=== PATIENT | male | born 1975 | race Caucasian/White ===

== ENCOUNTER 2022-06-22 20:46 | Observation (INO) ==
[2022-06-22 22:19] LABS: Basophils # (auto) 0.02 K/uL (0-0.2); Basophils % (auto) 0.2 %; Eosinophils # (auto) 0.03 K/uL (0-0.50); Eosinophils % (auto) 0.3 %; Hematocrit (blood only) 41.5 % (40.1-51.0); Hemoglobin 13.9 g/dl (14.0-18.0); Immature Granulocytes # (auto) 0.04 K/uL (0.00-0.02); Immature Granulocytes % (auto) 0.4 %; Lymphocytes # (auto) 1.16 K/uL (1.2-3.4); Lymphocytes % (auto) 11.7 %; Mean Corpuscular Hemoglobin 29.6 pg (25.0-34.0); Mean Corpuscular Hgb Conc 33.5 g/dL (32.0-36.0); Mean Corpuscular Volume 88.5 fL (80.0-100.0); Mean Platelet Volume 10.2 fL (9.4-12.4); Monocytes # (auto) 1.22 K/uL (0.24-0.82); Monocytes % (auto) 12.3 %; Neutrophils # (auto) 7.45 K/uL (1.4-6.5); Neutrophils % (auto) 75.1 %; Platelet Count 166 K/uL (130-400); RDW Coefficient of Variation 12.4 % (11.5-14.5); RDW Standard Deviation 40.4 fL (36.4-46.3); Red Blood Count 4.69 M/uL (4.63-6.08); White Blood Count 9.92 K/ul (4.8-10.8)
[2022-06-22 22:29] LABS: Partial Thromboplastin Time 27.8 Seconds (21.0-31.0); Prothrombin Time 10.3 Seconds (9.0-12.0)
[2022-06-22 22:51] LABS: Albumin Globulin Ratio 1.7 (0.9-2); Albumin Level 4.5 gm/dl (3.4-5.0); BUN Creatinine Ratio 16.7 (10-20); Calcium 9.4 mg/dl (8.5-10.1); Creatinine Clr Calc Pharmacy 88.9 ml/min; Est GFR (African American) 108.7 ml/min; Est GFR (Non-African American) 93.8 ml/min; Globulin 2.6 gm/dl (2.5-4.0); Potassium 4.4 mmol/L (3.5-5.1); Total Protein 7.1 gm/dl (6.0-8.3)
[2022-06-22] MEDS ORDERED: MoRPHine SULFATE 4 MG/ML 1 ML CARP\\VIAL IV STA (23:20)
[2022-06-22] MEDS ORDERED: ONDANSETRON INJ 2 MG/ML 2 ML VIAL IV STA (23:20)
--- NOTE | 2022-06-22 23:29 | Emergency Department Note ---
History of Present Illness General Chief complaint: Rib Injury/Pain Stated complaint: RIB PAIN, SHOULDER PAIN Time Seen by Provider: 06/22/22 23:15 History of Present Illness Maximum Pain Intensity: 9 This 47-year-old presents to the ER complaining of right upper quadrant pain today Location: Right upper quadrant chest Quality: Painful Severity: Moderate Duration: Today Timing: Today Context: Patient was concerned and came in Modifying factors: better with rest; worse with palpation patient is concerned it might be his gallbladder. The pain radiates to his shoulder. Patient denies fevers, vomiting, diarrhea, flulike illness. No trauma to the area. Home Medications Medication Instructions Recorded Confirmed Type esomeprazole magnesium 20 mg 20 mg PO QAM 06/02/22 06/23/22 History capsule,delayed release Allergies Allergy/AdvReac Type Severity Reaction Status Date / Time No Known Allergies Allergy Unknown Verified 06/23/22 01:51 Past Med/Surg History Medical History BPV (benign positional vertigo) GERD (gastroesophageal reflux disease) Left inguinal hernia Surgical History Hx of inguinal hernia surgery 1975 Previous back surgery 2006 S/P left inguinal hernia repair (06/14/22) Open left inguinal hernia repair. Dr. Silva Family History Father Hypertension Denies family history of Ovarian cancer Prostate cancer Diabetes Myocardial infarction Breast cancer Colorectal cancer Social History Smoking Status: Never smoker Tobacco Type: Smokeless Tobacco (Dip or Chew) Second Hand Exposure: Yes (growing up); Hx Alcohol Use: Yes Alcohol type: beer Alcohol Intake Frequency: 2-3 x/Week Hx Substance Use: No Preferred Language: Danish Communication Ability: Effective Wheel Roller Required: No Beliefs That Will Affect Care: None marital status: Current Living Situation: Spouse and Family current occupational status: employed 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 Feels Safe at Home: Yes caffeine: Yes (coffee) Dental Care, Regularly: Yes Physical Activity Frequency: 3-4 Times per Week Physical Activity Frequency Comment: working Seatbelt Use: always Sunscreen Use: Yes Assistive Devices: Glasses Review of Systems A total of 10 systems reviewed and were otherwise negative Physical Exam Vital Signs Vital Signs - 24 hr 06/22/22 20:55 06/23/22 02:10 Temperature 37.0 C Temperature Source Temporal Artery Scan Pulse Rate 82 Pulse Rate [Finger] 71 Respiratory Rate 18 18 Respiratory Depth Normal Normal Blood Pressure 128/83 Blood Pressure [Right Arm] 127/75 Blood Pressure Mean 98 Blood Pressure Mean [Right Arm] 92 Pulse Oximetry 99 99 Oxygen Delivery Method Room Air Room Air Sepsis Recent Fever Within 48 Hours No Sepsis New/Unexplained Change in Mental Status N/A Sepsis Action Taken by Nursing No Action Required VITALS: Vitals are noted on the nurse's note and reviewed by myself. Vital signs stable. GENERAL: Pleasant gentleman ambulating without difficulty, in no acute distress, nondiaphoretic, well-developed well-nourished. SKIN: The skin was without rashes, erythema, edema, or bruising. There is no tenting of the skin. Capillary reflex less than 2 seconds. HEAD: Normocephalic atraumatic. EARS: External auditory canals clear, EYES: Pupils equal round and reactive to light and accommodation. Conjunctivae without injection, sclerae without icterus. Extraocular movements intact. NOSE: Patent, turbinates without inflammation or discharge MOUTH: Mucous membranes moist. Pharynx without erythema or exudate. Uvula midline. Airway patent. Tongue does not deviate. NECK: Supple without nuchal rigidity. No lymphadenopathy. No thyromegaly. Cervical spine is nontender. No JVD. HEART: Regular rate and rhythm LUNGS: Clear to auscultation bilaterally without wheezes, rales or rhonchi. No retractions or accessory muscle use. ABDOMEN: Positive bowel sounds x 4. Normal tympanic percussion. Soft, tender to palpation right upper quadrant, without masses or organomegaly. No guardi ng or rebound tenderness. No CVA tenderness MUSCULOSKELETAL: No muscle atrophy, erythema, or edema noted. NEURO: Patient was alert and oriented to person place and time. Normal sensation to light and sharp touch. No focal neurological deficits. Course Administered Medications Discontinued Medications Diazepam (Diazepam 5 Mg/Ml Inj 10ml Vial) 5 mg IV NOW STA Stop: 06/23/22 03:14 Last Admin: 06/23/22 03:36 Dose: 5 mg Documented By: JOSE RAMON Acetaminophen (Ofirmev) 1,000 mg in 100 mls @ 400 mls/hr IV NOW STA Stop: 06/23/22 00:09 Last Infusion: 06/23/22 00:24 Dose: 0 mls/hr Documented By: Admin: 06/23/22 00:03 Dose: 400 mls/hr Documented By: BECKA Ioversol (Optiray 320 500ml) 107 ml IV ONCE ONE Stop: 06/23/22 01:52 Last Admin: 06/23/22 01:51 Dose: 107 ml Documented By: MASHA Ketorolac Tromethamine (Ketorolac Tromethamine 15 Mg/Ml Vial) 10 mg IV NOW STA Stop: 06/23/22 02:40 Last Admin: 06/23/22 02:44 Dose: 10 mg Documented By: JOSE RAMON Morphine Sulfate (Morphine Sulfate 4 Mg/Ml 1 Ml Carp\Vial) 4 mg IV NOW STA Stop: 06/22/22 23:21 Last Admin: 06/23/22 02:11 Dose: 4 mg Documented By: DONITA Morphine Sulfate (Morphine Sulfate 4 Mg/Ml 1 Ml Carp\Vial) Confirm Administered Dose 4 mg .ROUTE .STK-MED ONE Stop: 06/23/22 02:09 Last Admin: 06/23/22 02:11 Dose: Not Given Documented By: DONITA Morphine Sulfate (Morphine Sulfate 4 Mg/Ml 1 Ml Carp\Vial) 4 mg IV NOW STA Stop: 06/23/22 02:35 Last Admin: 06/23/22 02:38 Dose: 4 mg Documented By: JOSE RAMON Ondansetron HCl (Ondansetron Inj 2 Mg/Ml 2 Ml Vial) 4 mg IV NOW STA Stop: 06/22/22 23:21 Last Admin: 06/23/22 02:11 Dose: 4 mg Documented By: DONITA Ondansetron HCl (Ondansetron Inj 2 Mg/Ml 2 Ml Vial) Confirm Administered Dose 4 mg .ROUTE .STK-MED ONE Stop: 06/23/22 02:09 Last Admin: 06/23/22 02:11 Dose: Not Given Documented By: DONITA Medical Decision Making Medical Records Attestation: I reviewed the patient's medical records. Home Medications Current Medication List: was personally reviewed by me Laboratory Data Attestation: I reviewed the patient's lab results. Result diagrams: 06/22/22 22:07 06/22/22 22:07 Lab Results 06/22/22 06/22/22 06/22/22 Range/Units 22:07 22:07 22:07 WBC 9.92 (4.8-10.8) K/ul RBC 4.69 (4.63-6.08) M/uL Hgb 13.9 L (14.0-18.0) g/dl Hct 41.5 (40.1-51.0) % MCV 88.5 (80.0-100.0) fL MCH 29.6 (25.0-34.0) pg MCHC 33.5 (32.0-36.0) g/dL RDW Std Deviation 40.4 (36.4-46.3) fL RDW Coeff of Lm 12.4 (11.5-14.5) % Plt Count 166 (130-400) K/uL MPV 10.2 (9.4-12.4) fL Immature Gran % (Auto) 0.4 % Neut % (Auto) 75.1 % Lymph % (Auto) 11.7 % [place] % (Auto) 12.3 % Eos % (Auto) 0.3 % Baso % (Auto) 0.2 % Neut # (Auto) 7.45 H (1.4-6.5) K/uL Lymph # (Auto) 1.16 L (1.2-3.4) K/uL [place] # (Auto) 1.22 H (0.24-0.82) K/uL Eos # (Auto) 0.03 (0-0.50) K/uL Baso # (Auto) 0.02 (0-0.2) K/uL Immature Gran # (Auto) 0.04 H (0.00-0.02) K/uL PT 10.3 (9.0-12.0) Seconds INR 1.0 (0.9-1.1) APTT 27.8 (21.0-31.0) Seconds PTT Ratio 1.0 Sodium 140 (136-145) mmol/L Potassium 4.4 (3.5-5.1) mmol/L Chloride 102 (98-107) mmol/L Carbon Dioxide 30 (21-32) mmol/L Anion Gap 8 (3-11) BUN 16 (6-23) mg/dl Creatinine 0.96 (0.6-1.4) mg/dl Est Cr Clr Drug Dosing 88.9 ml/min Est GFR ( Amer) 108.7 ml/min Est GFR (Non-Af Amer) 93.8 ml/min BUN/Creatinine Ratio 16.7 (10-20) Glucose 112 H (70-99(Fasting)) mg/dl Calcium 9.4 (8.5-10.1) mg/dl Total Bilirubin 1.0 (0.2-1.0) mg/dl AST 140 H (13-39) U/L ALT 193 H (7-52) U/L Alkaline Phosphatase 134 H (34-104) U/L Troponin I High Sens Cancelled Total Protein 7.1 (6.0-8.3) gm/dl Albumin 4.5 (3.4-5.0) gm/dl Globulin 2.6 (2.5-4.0) gm/dl Albumin/Globulin Ratio 1.7 (0.9-2) Lipase 19 (11-82) U/L SARS-CoV-2, RNA, NAAT (NEGATIVE) 06/23/22 06/23/22 Range/Units 01:33 02:50 WBC (4.8-10.8) K/ul RBC (4.63-6.08) M/uL Hgb (14.0-18.0) g/dl Hct (40.1-51.0) % MCV (80.0-100.0) fL MCH (25.0-34.0) pg MCHC (32.0-36.0) g/dL RDW Std Deviation (36.4-46.3) fL RDW Coeff of Lm (11.5-14.5) % Plt Count (130-400) K/uL MPV (9.4-12.4) fL Immature Gran % (Auto) % Neut % (Auto) % Lymph % (Auto) % [place] % (Auto) % Eos % (Auto) % Baso % (Auto) % Neut # (Auto) (1.4-6.5) K/uL Lymph # (Auto) (1.2-3.4) K/uL [place] # (Auto) (0.24-0.82) K/uL Eos # (Auto) (0-0.50) K/uL Baso # (Auto) (0-0.2) K/uL Immature Gran # (Auto) (0.00-0.02) K/uL PT (9.0-12.0) Seconds INR (0.9-1.1) APTT (21.0-31.0) Seconds PTT Ratio Sodium (136-145) mmol/L Potassium (3.5-5.1) mmol/L Chloride (98-107) mmol/L Carbon Dioxide (21-32) mmol/L Anion Gap (3-11) BUN (6-23) mg/dl Creatinine (0.6-1.4) mg/dl Est Cr Clr Drug Dosing ml/min Est GFR ( Amer) ml/min Est GFR (Non-Af Amer) ml/min BUN/Creatinine Ratio (10-20) Glucose (70-99(Fasting)) mg/dl Calcium (8.5-10.1) mg/dl Total Bilirubin (0.2-1.0) mg/dl AST (13-39) U/L ALT (7-52) U/L Alkaline Phosphatase (34-104) U/L Troponin I High Sens 2.7 Total Protein (6.0-8.3) gm/dl Albumin (3.4-5.0) gm/dl Globulin (2.5-4.0) gm/dl Albumin/Globulin Ratio (0.9-2) Lipase (11-82) U/L SARS-CoV-2, RNA, NAAT NEGATIVE (NEGATIVE) Imaging Data Attestation: I personally reviewed and interpreted this imaging study as follows: MDM Narrative Prior records/ancillary studies reviewed. Triage Nursing notes reviewed. Additional history obtained from nursing. The patient's history was concerning for abdominal pain. Differential diagnosis: Etiologies such as appendicitis, diverticulitis, PUD, biliary pathology, UTI, pancreatitis, obstruction, mesenteric ischemia, aortic pathology, infections, inflammatory bowel disease, renal colic, as well as others were entertained. Physical examination findings: As above. ER treatment provided: An order was placed for continuous cardiac monitoring. The monitor shows a rate of 60-100 with a sinus rhythm interpreted by myself Morphine Zofran IV fluids, Valium, Toradol On reassessment the patient felt better. Diagnostics interpreted by me: ECG: EKG ordered for upper abdominal pain EKG: Normal sinus, normal intervals, no acute ST-T wave changes. Impression normal sinus rhythm interpreted by myself I think arrhythmia is unlikely. EKG shows normal sinus rhythm with no interval abnormalities such as QT prolongation or WPW. There are no findings to suggest Brugada syndrome. Cardiac monitoring in the emergency department reveals no tachycardic or bradycardic dysrhythmia. Hypertrophic cardiomyopathy was considered but there are no clear historical elements pointing toward this. EKG is not suggestive. The QRS voltage is not extremely large and there are no suggestive Q waves. The labs revealed elevated LFTs, no worrisome leukocytosis Imaging studies: Chest x-ray with no acute consolidation, pneumothorax or free air interpreted by myself US RUQ: No sonographic evidence for cholecystitis, choledocholithiasis, or cholelithiasis. Unremarkable sonographic appearance of the right kidney. Radiologist: Lux Perea MD CTA CHEST: No evidence of PE. Lungs are clear aside from mild bibasilar atelectasis. No pleural effusions. No adenopathy. Heart size is normal. Aorta is unremarkable. Radiologist: Lux Perea MD CT ABDOMEN & PELVIS With Contrast: There are postsurgical changes in the left inguinal region. No acute pathology is identified in the abdomen or pelvis. Radiologist: Lux Perea MD Consultation: A consultation was placed with the hospitalist. The case was discussed and diagnostics were reviewed. The patient was evaluated in the ER for further treatment. Exam and history seem consistent with intractable abdominal pain that could be biliary colic. Patient still in severe amount of pain. Advanced imaging was o rdered for the patient's abdominal pain. This is reviewed and negative for acute findings. LFTs are elevated. T bili was normal. No worrisome leukocytosis. Patient was given multiple rounds of pain meds. He still moderate on the pain. Medicine is consulted. He will be evaluated for admission. He may need a HIDA scan. I will defer this to medicine. By the evaluation outlined above emergent etiologies such as appendicitis, diverticulitis, PUD, UTI, pancreatitis, obstruction, mesenteric ischemia, aortic pathology, infections, inflammatory bowel disease, renal colic, as well as others were deemed relatively unlikely. The pt informed about the findings as listed above. All questions were answered and pleased with the treatment. The chart was completed utilizing [employer] voice recognition software. Grammatical errors, random word insertions, pronoun errors, and incomplete sentences are an occassional consequence of this system due to software limitations, ambient noise, and hardware issues. Any formal questions or concerns about the content, text, or information contained within the body of this dictation should be directly addressed to the physician assignment desk assistant for clarification. Impression & Plan Intractable right upper quadrant abdominal pain Discharge Plan Visit Data Chief Complaint: Rib Injury/Pain Stated Complaint: RIB PAIN, SHOULDER PAIN ED Provider: Mark Duff ED Midlevel Provider: Dot Perea Discharge Problem: Intractable right upper quadrant abdominal pain Patient Disposition: Being Evaluated by Hospitalist Condition: Good Forms Stand Alone Forms: [facility] Prescriptions Prescriptions: No Action esomeprazole magnesium 20 mg capsule,delayed release(DR/EC) 20 mg PO QAM Referrals Referrals: Kelly Castelan CRNP [Primary Care Provider] -
[2022-06-22] MEDS ORDERED: ACETAMINOPHEN 1,000 MG/100 ML VIAL IV STA (23:55)
[2022-06-23] MEDS ORDERED: OPTIRAY 320 500ml IV ONE (01:51)
[2022-06-23] MEDS ORDERED: ONDANSETRON INJ 2 MG/ML 2 ML VIAL ONE (02:08)
[2022-06-23] MEDS ORDERED: MoRPHine SULFATE 4 MG/ML 1 ML CARP\\VIAL ONE (02:08)
[2022-06-23] MEDS ORDERED: MoRPHine SULFATE 4 MG/ML 1 ML CARP\\VIAL IV STA (02:34)
[2022-06-23] MEDS ORDERED: KETOROLAC TROMETHAMINE 15 MG/ML VIAL IV STA (02:39)
[2022-06-23] MEDS ORDERED: FLEXERIL 10 MG PO ONE (06:19)
[2022-06-23] MEDS ORDERED: oxyCODONE IR HOME PACK PO ONE (06:19)
--- NOTE | 2022-06-23 06:19 | Hospitalist Consultation ---
Date of Consultation June 23, 2022 Assessment & Plan (1) Back pain: pt has back spasm radiating to RUQ area but pain is primarily in the back pt has no elevated wbc count and no point tenderness on PE no peguero sign noted pain improved on valium and tylenol (2) Left inguinal hernia: pt is s/p surgical repair improving and healing as expected History of Present Illness Reason for Consultation: pt with back pain spasms Requesting Physician: eduardo james History of Present Illness pt with h/o prior back surgery and recent hernia repair presents with R should pain and back pain. pt reports that he has been lying on the couch after hsi hernia surgery and feels that he has developed back spasms on his right side as he was using his right side more after the left hernia surgery . denies nausea and vomitting no fever or chills . pt has prior back spasms in past pt was given valium and tylenol and reports that his pain is better with muscle relaxant and now feels he is ready to go home Allergies Allergy/AdvReac Type Severity Reaction Status Date / Time No Known Allergies Allergy Unknown Verified 06/23/22 01:51 Home Medications Medication Instructions Recorded Confirmed Type esomeprazole magnesium 20 mg 20 mg PO QAM 06/02/22 06/23/22 History capsule,delayed release Patient History Medical History BPV (benign positional vertigo) GERD (gastroesophageal reflux disease) Left inguinal hernia Surgical History Hx of inguinal hernia surgery 1976 Previous back surgery 2007 S/P left inguinal hernia repair (06/14/22) Open left inguinal hernia repair. Dr. Silva Family History Father Hypertension Denies family history of Ovarian cancer Prostate cancer Diabetes Myocardial infarction Breast cancer Colorectal cancer Social History Smoking Status: Never smoker Tobacco Type: Smokeless Tobacco (Dip or Chew) Second Hand Exposure: Yes (growing up); Do You Dip or Chew Tobacco: Yes; Hx Alcohol Use: Yes Alcohol type: beer Alcohol Intake Frequency: 2-3 x/Week Hx Substance Use: No Preferred Language: Swedish Communication Ability: Effective Portfolio Manager Required: No Beliefs That Will Affect Care: None marital status: Current Living Situation: Spouse and Family current occupational status: employed 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 Other Information That Helps Us Care for You: No Feels Safe at Home: Yes Safety Concerns: Feels Safe At This Time caffeine: Yes (coffee) Dental Care, Regularly: Yes Physical Activity Frequency: 3-4 Times per Week Physical Activity Frequency Comment: working Seatbelt Use: always Sunscreen Use: Yes Assistive Devices: Glasses Review of Systems Constitutional: no fevers or chills Physical Exam Neck: trachea midline, no thyromegaly Respiratory: normal respiratory effort, lungs clear to auscultation Cardiovascular: RRR, no murmur, no edema Gastrointestinal (Abdomen): normal bowel sounds, soft, nontender, no hepatosplenomegaly pt has no rebound, surgical incision of hernia healing well no peguero sign for gallbaldder no point tenderenss Musculoskeletal: no cyanosis or clubbing, extremities motor strength 5/5 Neurologic: patellar DTR's 2+ bilat, sensation intact and PERRL, EOMI, accommodation nl, no face palsy, no dysarthria Psychiatric: A+Ox3, euthymic affect Results & Data Results & Data ([facility]) Vital Signs (Past 12 Hours) Vital Signs Temp Pulse Pulse Resp BP BP Pulse Ox 06/23/22 05:06 68 16 110/71 95 06/23/22 02:10 71 18 127/75 99 06/22/22 20:55 37.0 C 82 18 128/83 99 O2 Del Method 06/23/22 05:06 Room Air 06/23/22 02:10 Room Air 06/22/22 20:55 Room Air Laboratory Results Short CBC 06/22/22 Range/Units 22:07 WBC 9.92 (4.8-10.8) K/ul Hgb 13.9 L (14.0-18.0) g/dl Hct 41.5 (40.1-51.0) % Plt Count 166 (130-400) K/uL BMP 06/22/22 22:07 Sodium 140 Potassium 4.4 Chloride 102 Carbon Dioxide 30 BUN 16 Creatinine 0.96 Glucose 112 H Calcium 9.4 Liver Function 06/22/22 Range/Units 22:07 Total Bilirubin 1.0 (0.2-1.0) mg/dl AST 140 H (13-39) U/L ALT 193 H (7-52) U/L Alkaline Phosphatase 134 H (34-104) U/L Albumin 4.5 (3.4-5.0) gm/dl PG Care Time/CCT Total # of Minutes Spent Total Time Spent with Patient: Total time spent is greater than 50% in coordination of care (as documented) at patient's floor/unit and/or counseling patient: Coding Level of Care Code 85047 Office/OBS Consult Lvl 3 Diagnoses Back pain M54.9 Left inguinal hernia K40.90 Time Spent (min) 30
--- NOTE | 2022-06-23 07:46 | CT Scan Report ---
CT ANGIOGRAM OF THE CHEST CLINICAL HISTORY: Dyspnea COMPARISON STUDY: Chest x-ray dated 06/22/2022. TECHNIQUE: Following the IV administration of 107 cc of Optiray 320, CT angiogram of the chest was pe rformed from the upper abdomen to the thoracic inlet utilizing the pulmonary embolus protocol. Images are reviewed in the axial, sagittal, and coronal planes. 3-D MIPS images are created and assessed. I V contrast was administered without complication. A dose lowering technique was utilized adhering to the principles of ALARA. FINDINGS: Thyroid: Imaged portions of the thyroid gland are normal in size and attenuation. Thoracic aorta: The thoracic aorta is normal in caliber and demonstrates standard 3-vessel arch anato my. No dissection is seen. Pulmonary vasculature: The pulmonary trunk is normal in caliber. Segmental and subsegmental pulmonary emboli are seen within branches of the right and left lower lobe pulmonary arteries.. Heart: The heart is normal in size and without pericardial effusion. Lungs and pleural spaces: Dependent airspace consolidation is seen at both lung bases. The trachea an d central airways are clear. Trace pleural fluid is seen within the right. Mediastinum: There is no mediastinal lymphadenopathy. Shobha: Clear. Axillae: There is no axillary lymphadenopathy. Upper abdomen: Partially visualized upper abdominal viscera is within normal limits. Skeletal structures: No lytic or blastic bony lesions are seen. IMPRESSION: 1. Segmental and subsegmental pulmonary emboli are seen within branches of the right and left lower l obe pulmonary arteries. 2. Dependent airspace consolidation is seen at both lung bases with trace pleural fluid on the right. Given the presence of multiple pulmonary emboli this likely represents small pulmonary infarcts. Cor relate clinically for evidence of a superimposed infectious/inflammatory pneumonitis. ACT 112: Negative or not required by law. Electronically signed by: Nick Gr M.D. 06/23/2022 7:45 AM
--- NOTE | 2022-06-23 08:01 | Emergency Department Note ---
ED Visit Note ED Physician Sign Out Note: 47-year-old gentleman arrives for evaluation of right upper quadrant and right back pain over the last day or so. He had initially been seen by overnight team. Initial work-up included CTA of the chest, extensive other laboratory and plan for hospitalization though he was feeling better and the plan was to discharge after being seen by hospitalist. Initial CT of the chest was read as no acute findings. However the morning radiologist has added an addendum which notes multiple bilateral PEs along with pulmonary infarcts. On evaluation patient is calm cooperative stable however he still having some discomfort. In the setting of multiple PEs and infarction I do feel that hospitalization would be indicated at this time. Patient was evaluated he is on no blood thinners had no recent bleeding he has no head injuries. I discussed case with Dr. Cuellar of the [facility] hospitalist service. They will eval further for management. DVT likely provoked from Hernia surgery 1 week ago. No h/o PE/DVT nor family history of similar. Gabriel oHng MD
--- NOTE | 2022-06-23 08:12 | Ultrasound Report ---
US gallbladder CLINICAL HISTORY: ruq pain TECHNIQUE: Multiple real-time sonographic images of the right upper quadrant were obtained. Comparison: Comparison is made to right upper quadrant ultrasound 08/01/2014 FINDINGS: The liver may be minimally echogenic. No focal mass lesions are seen. No intrahepatic ductal dilat ation is seen. No gallstones or sludge are identified within the gallbladder. The gallbladder wall i s not thickened. There is no pericholecystic fluid present. A sonographic Park's sign was not elici kylee by the pastry mixer. The common duct measures 2.1 cm in diameter at the level of the hepatic art magdalena. The visualized portions of the pancreas appear normal. The right kidney shows normal echogenicity, cortical thickness and renal contour. The right kidney sh ows no evidence of hydronephrosis or mass. No ascites or free fluid is seen in Sebastian's pouch. IMPRESSION: No acute abnormalities and in particular no evidence of acute cholecystitis. ACT 112: Negative or not required by law. Electronically signed by: Yariel Varela M.D. 06/23/2022 8:11 AM
--- NOTE | 2022-06-23 08:23 | CT Scan Report ---
CT abd pelvis IV con only CLINICAL HISTORY: mid abd pain TECHNIQUE: Helical axial images of the abdomen and pelvis were obtained and displayed. Automated dose lowering techniques and/or adjustment according to patient size were utilized for this exam. This e xam was performed with intravenous contrast. CT DOSE: 602.84 mGy.cm COMPARISON: Comparison is made to abdominal ultrasound 08/01/2014 FINDINGS: Lower chest: Bibasilar atelectasis versus scarring is seen. Groundglass and consolidation is seen in the right lower lung. Liver: Unremarkable. No focal lesions are seen. Gallbladder and biliary tree: No calcified gallstones. Normal caliber wall. No intra- or extrahepatic biliary ductal dilation. Pancreas: Unremarkable, no focal lesions. Spleen: Unremarkable. Adrenals: Unremarkable. Kidneys and ureters: Unremarkable. Bladder: Unremarkable. Reproductive organs: Unremarkable. Bowel: Unremarkable appearance of the bowel. The appendix is normal. Lymph nodes Retroperitoneal: Unremarkable. Pelvic: Unremarkable. Mesenteric: Unremarkable. Peritoneum: Normal. Vessels: Unremarkable. Abdominal wall: Postsurgical changes are seen in the left inguinal region. Surgical packing material is noted in the region of the inguinal canal. Bones: Posterior fixation hardware is seen spanning L5-S1. IMPRESSION: Postsurgical changes are seen in the left inguinal region. Soft tissue and gas density in the inguina l canal likely represents surgical mesh patch. No acute abnormalities are seen to explain abdominal p ain. ACT 112: Negative or not required by law. Electronically signed by: Yariel Varela M.D. 06/23/2022 8:20 AM
--- NOTE | 2022-06-23 08:26 | XRay Report ---
TWO VIEW CHEST CLINICAL HISTORY: Atypical chest pain. FINDINGS: PA and lateral chest radiographs are obtained. No prior studies are available for compariso n at the time of dictation. The cardiomediastinal silhouette is unremarkable. Minimal dependent airsp nichelle opacities are seen on the lateral view. There is no pneumothorax. The bony thorax appears intact. IMPRESSION: Minimal dependent airspace opacities are seen on the lateral view. This could represent a telectasis versus a mild pneumonitis. ACT 112: Negative or not required by law. Electronically signed by: Nick Gr M.D. 06/23/2022 8:25 AM
[2022-06-23] MEDS ORDERED: Heparin IV Adult Wt-Based Standard WITH Bolus Protocol IV STA (08:30)
[2022-06-23] MEDS ORDERED: HEPARIN SODIUM/DEXTROSE 25,000 UNITS/500 ML BAG IV SCH (08:45)
[2022-06-23] MEDS ORDERED: HEPARIN SOD (PORCINE) 1000 UNIT/ML IV ONE (08:45)
--- NOTE | 2022-06-23 09:06 | History & Physical Report ---
Date of Service June 23, 2022 Assessment & Plan (1) Pulmonary embolism: Plan: Patient has bilateral pulmonary embolism which showed segmental and subsegmental with small pulmonary infarctions with no evidence of cardiac strain seen on imaging nor on EKG. Patient is hemodynamically and physiologically intact at this time. After discussion with patient and his family he will be given a dose of Eliquis we will observe him for 6 or so hours if he has no evidence of issues he will likely be discharged in the afternoon of this day. If he has problems with hemoptysis tachycardia hypoxia or hypotension he will stay another day (2) GERD (gastroesophageal reflux disease): Plan: . Maalox be offered the patient does chronically esomeprazole will be continued (3) BPV (benign positional vertigo): Plan: non symptomatic at this time History of Present Illness Primary Care Provider: ANI Chen pt with h/o prior back surgery and recent hernia repair (06/14/22)presents with R should pain and back pain. pt reports that he has been lying on the couch after hsi hernia surgery and feels that he has developed back spasms on his right side as he was using his right side more after the left hernia surgery . denies nausea and vomitting no fever or chills . pt has prior back spasms in past pt was given valium and tylenol and reports that his pain is better with muscle relaxant CTA over read shows segmental and subsegmental in bilateral lower lung pulm arteries Allergies Allergy/AdvReac Type Severity Reaction Status Date / Time No Known Allergies Allergy Unknown Verified 06/23/22 01:51 Home Medications Medication Instructions Recorded Confirmed Type esomeprazole magnesium 20 mg 20 mg PO QAM 06/02/22 06/23/22 History capsule,delayed release apixaban 5 mg (74 tabs) tablets in 5 mg PO BID #74 ea 06/23/22 Rx a dose pack (Eliquis) apixaban 5 mg tablet (Eliquis) 5 mg PO BID #60 tabs 06/23/22 Rx cyclobenzaprine 10 mg tablet 10 mg PO TID PRN muscle spasm #20 06/23/22 Rx tabs Past Med/Surg History Medical History (Updated 06/23/22 @ 09:06 by Amos Cuellar MD) BPV (benign positional vertigo) GERD (gastroesophageal reflux disease) Left inguinal hernia Surgical History Hx of inguinal hernia surgery 1976 Previous back surgery 2007 S/P left inguinal hernia repair (06/14/22) Open left inguinal hernia repair. Dr. Silva Family History Father Hypertension Denies family history of Ovarian cancer Prostate cancer Diabetes Myocardial infarction Breast cancer Colorectal cancer Social History Smoking Status: Never smoker Tobacco Type: Smokeless Tobacco (Dip or Chew) Second Hand Exposure: Yes (growing up); Do You Dip or Chew Tobacco: Yes; Hx Alcohol Use: Yes Alcohol type: beer Alcohol Intake Frequency: 2-3 x/Week Hx Substance Use: No Preferred Language: Kenyan Communication Ability: Effective Bank Examiner Required: No Beliefs That Will Affect Care: None marital status: Current Living Situation: Spouse and Family current occupational status: employed 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 Other Information That Helps Us Care for You: No Feels Safe at Home: Yes Safety Concerns: Feels Safe At This Time caffeine: Yes (coffee) Dental Care, Regularly: Yes Physical Activity Frequency: 3-4 Times per Week Physical Activity Frequency Comment: working Seatbelt Use: always Sunscreen Use: Yes Assistive Devices: Glasses Review of Systems Review of Systems: Mild distress and fatigue no headache, no visual changes no speech or swallowing issues no chest pain, pressure or palpitations no shortness of breath, cough or wheezes Patient originally presented with right upper quadrant pain and right back pain over the last 2 days this is resolved with treatment in the emergency department , patient with recent left inguinal hernia repair on 06/14/2022, no nausea or vomiting, diarrhea or constipation no dysuria, hematuria or frequency no focal joint pain or lower extremity swelling or muscular tenderness no back pain, CVA tenderness or radicular pain no bruising, bleeding or rashes no focal signs of weakness or numbness or altered sensation no complaints of anxiety or depression.. Physical Exam Physical Exam: The patient appeared well nourished and normally developed. Vital signs as documented. Head exam is normocephalic atraumatic Neck is without JVD, thyromegaly, or carotid bruits. Lungs are clear to auscultation, no focal loss of breath sounds Cardiac exam, Rhythm is regular.. No murmurs, rubs or gallops. Abdominal exam reveals normal bowel sounds, soft non tender, no masses Extremities are nonedematous and both pedal pulses are present No venous cords no Homans' sign Neurologic exam is alert and oriented, no focal loss of strength or sensation Skin is without bruises or rashes Psychologically is without concerns for anxiety or depression.. Results & Data Results & Data ([facility]) Vital Signs (Past 12 Hours) Vital Signs Pulse Pulse Resp BP BP Pulse Ox O2 Del Method 06/23/22 06:41 75 16 122/85 96 Room Air 06/23/22 05:06 68 16 110/71 95 Room Air 06/23/22 02:10 71 18 127/75 99 Room Air Diagnostic Findings Chest X-Ray 06/22/22 20:58 TWO VIEW CHEST CLINICAL HISTORY: Atypical chest pain. FINDINGS: PA and lateral chest radiographs are obtained. No prior studies are available for comparison at the time of dictation. The cardiomediastinal silhouette is unremarkable. Minimal dependent airspace opacities are seen on the lateral view. There is no pneumothorax. The bony thorax appears intact. IMPRESSION: Minimal dependent airspace opacities are seen on the lateral view. This could represent atelectasis versus a mild pneumonitis. ACT 112: Negative or not required by law. Electronically signed by: Nick Gr M.D. 06/23/2022 8:25 AM Gallbladder Ultrasound 06/22/22 23:13 US gallbladder CLINICAL HISTORY: ruq pain TECHNIQUE: Multiple real-time sonographic images of the right upper quadrant were obtained. Comparison: Comparison is made to right upper quadrant ultrasound 08/01/2014 FINDINGS: The liver may be minimally echogenic. No focal mass lesions are seen. No intrahepatic ductal dilatation is seen. No gallstones or sludge are identified within the gallbladder. The gallbladder wall is not thickened. There is no pericholecystic fluid present. A sonographic Park's sign was not elicited by the line operator. The common duct measures 2.1 cm in diameter at the level of the hepatic artery. The visualized portions of the pancreas appear normal. The right kidney shows normal echogenicity, cortical thickness and renal contour. The right kidney shows no evidence of hydronephrosis or mass. No ascites or free fluid is seen in Sebastian's pouch. IMPRESSION: No acute abnormalities and in particular no evidence of acute cholecystitis. ACT 112: Negative or not required by law. Electronically signed by: Yariel Varela M.D. 06/23/2022 8:11 AM Abdomen/Pelvis CT 06/23/22 00:45 CT abd pelvis IV con only CLINICAL HISTORY: mid abd pain TECHNIQUE: Helical axial images of the abdomen and pelvis were obtained and displayed. Automated dose lowering techniques and/or adjustment according to patient size were utilized for this exam. This exam was performed with intravenous contrast. CT DOSE: 602.84 mGy.cm COMPARISON: Comparison is made to abdominal ultrasound 08/01/2014 FINDINGS: Lower chest: Bibasilar atelectasis versus scarring is seen. Groundglass and consolidation is seen in the right lower lung. Liver: Unremarkable. No focal lesions are seen. Gallbladder and biliary tree: No calcified gallstones. Normal caliber wall. No intra- or extrahepatic biliary ductal dilation. Pancreas: Unremarkable, no focal lesions. Spleen: Unremarkable. Adrenals: Unremarkable. Kidneys and ureters: Unremarkable. Bladder: Unremarkable. Reproductive organs: Unremarkable. Bowel: Unremarkable appearance of the bowel. The appendix is normal. Lymph nodes Retroperitoneal: Unremarkable. Pelvic: Unremarkable. Mesenteric: Unremarkable. Peritoneum: Normal. Vessels: Unremarkable. Abdominal wall: Postsurgical changes are seen in the left inguinal region. Surgical packing material is noted in the region of the inguinal canal. Bones: Posterior fixation hardware is seen spanning L5-S1. IMPRESSION: Postsurgical changes are seen in the left inguinal region. Soft tissue and gas density in the inguinal canal likely represents surgical mesh patch. No acute abnormalities are seen to explain abdominal pain. ACT 112: Negative or not required by law. Electronically signed by: Yariel Varela M.D. 06/23/2022 8:20 AM Chest CTA 06/23/22 00:45 CT ANGIOGRAM OF THE CHEST CLINICAL HISTORY: Dyspnea COMPARISON STUDY: Chest x-ray dated 06/22/2022. TECHNIQUE: Following the IV administration of 107 cc of Optiray 320, CT angiogram of the chest was performed from the upper abdomen to the thoracic inlet utilizing the pulmonary embolus protocol. Images are reviewed in the axial, sagittal, and coronal planes. 3-D MIPS images are created and assessed. IV contrast was administered without complication. A dose lowering technique was utilized adhering to the principles of ALARA. FINDINGS: Thyroid: Imaged portions of the thyroid gland are normal in size and attenuation. Thoracic aorta: The thoracic aorta is normal in caliber and demonstrates standard 3-vessel arch anatomy. No dissection is seen. Pulmonary vasculature: The pulmonary trunk is normal in caliber. Segmental and subsegmental pulmonary emboli are seen within branches of the right and left lower lobe pulmonary arteries.. Heart: The heart is normal in size and without pericardial effusion. Lungs and pleural spaces: Dependent airspace consolidation is seen at both lung bases. The trachea and central airways are clear. Trace pleural fluid is seen within the right. Mediastinum: There is no mediastinal lymphadenopathy. Shobha: Clear. Axillae: There is no axillary lymphadenopathy. Upper abdomen: Partially visualized upper abdominal viscera is within normal limits. Skeletal structures: No lytic or blastic bony lesions are seen. IMPRESSION: 1. Segmental and subsegmental pulmonary emboli are seen within branches of the right and left lower lobe pulmonary arteries. 2. Dependent airspace consolidation is seen at both lung bases with trace pleural fluid on the right. Given the presence of multiple pulmonary emboli this likely represents small pulmonary infarcts. Correlate clinically for evidence of a superimposed infectious/inflammatory pneumonitis. ACT 112: Negative or not required by law. Electronically signed by: Nick Gr M.D. 06/23/2022 7:45 AM ECG Additional Comments: EKG shows normal sinus rhythm without evidence of right ventricular strain PG Care Time/CCT Total # of Minutes Spent Total Time Spent with Patient: Total time spent is greater than 50% in coordination of care (as documented) at patient's floor/unit and/or counseling patient: Coding Level of Care Code INT OBSERVATION CARE 70M LVL 3 Diagnoses Pulmonary embolism I26.99 GERD (gastroesophageal reflux disease) K21.9 BPV (benign positional vertigo) H81.10
--- NOTE | 2022-06-23 09:14 | Emergency Department Note ---
ED Visit Note I personally performed a history and examined the patient in conjunction with Dr. Hong. Additional information regarding the history, physical, assessment, and plan were discussed with supervising attending physician and are noted in their ED visit note. Resident Activity Tracking Resident Involvement: Resident Care Provided Care Provided: Adult ED
[2022-06-23] MEDS ORDERED: APIXABAN 5 MG TABLET PO STA (09:15)
--- NOTE | 2022-06-23 09:44 | Electrocardiogram Report ---
Test Reason : Blood Pressure : / mmHG Vent. Rate : 071 BPM Atrial Rate : 071 BPM P-R Int : 148 ms QRS Dur : 086 ms QT Int : 368 ms P-R-T Axes : 056 006 051 degrees QTc Int : 399 ms Normal sinus rhythm Normal ECG No previous ECGs available Confirmed by Olivier Davila ([id number]) on 06/23/2022 9:43:37 AM Referred By: REFERRED SELF Confirmed By:Michael Davila
[2022-06-23] MEDS ORDERED: ONDANSETRON INJ 2 MG/ML 2 ML VIAL IV PRN (11:41)
[2022-06-23] MEDS ORDERED: oxyCODONE HCL IR 5 MG TAB (IMMEDIATE RELEASE) PO PRN (11:41)
[2022-06-23] MEDS ORDERED: ACETAMINOPHEN 500 MG TAB PO PRN (11:41)
[2022-06-23] MEDS ORDERED: ALUMINUM/MAGNESIUM SUSP 30 ML UDC PO PRN (11:41)
[2022-06-23] MEDS ORDERED: APIXABAN 5 MG TABLET PO SCH (21:00)
--- NOTE | 2022-06-25 14:06 | Discharge Summary ---
Date of Service June 23, 2022 Admission HPI Per Admitting Provider pt with h/o prior back surgery and recent hernia repair (06/14/22)presents with R should pain and back pain. pt reports that he has been lying on the couch after hsi hernia surgery and feels that he has developed back spasms on his right side as he was using his right side more after the left hernia surgery . denies nausea and vomitting no fever or chills . pt has prior back spasms in past pt was given valium and tylenol and reports that his pain is better with muscle relaxant CTA over read shows segmental and subsegmental in bilateral lower lung pulm arteries Principal Diagnosis bilateral PE's, minor pulmonary infarctions Discharge Exam The patient appeared well nourished and normally developed. Vital signs as documented. Head exam is normocephalic atraumatic Neck is without JVD, thyromegaly, or carotid bruits. Lungs are clear to auscultation, no focal loss of breath sounds Cardiac exam, Rhythm is regular.. No murmurs, rubs or gallops. Abdominal exam reveals normal bowel sounds, soft non tender, no masses Extremities are nonedematous and both pedal pulses are present No venous cords no Homans' sign Neurologic exam is alert and oriented, no focal loss of strength or sensation Skin is without bruises or rashes Psychologically is without concerns for anxiety or depression.. Discharge Data Allergies Allergy/AdvReac Type Severity Reaction Status Date / Time No Known Allergies Allergy Unknown Verified 06/24/22 10:25 Consultations 06/23/22 03:36 ED Decision to Admit Stat 06/23/22 08:31 ED Decision to Admit Stat Ordered Studies 06/22/22 23:13 US gallbladder Urgent 06/23/22 00:45 CT Abd and Pelvis [CT abd pelvis IV con only] Stat CT angio chest PE protocol Stat Hospital Course (1) Pulmonary embolism: Patient has bilateral pulmonary embolism which showed segmental and subsegmental with small pulmonary infarctions with no evidence of cardiac strain seen on imaging nor on EKG. Patient is hemodynamically and physiologically intact at this time. After discussion with patient and his family he will be given a dose of Eliquis no issues except some pleuritic pain, pt wishes to go home and recover there. (2) GERD (gastroesophageal reflux disease): . Maalox be offered the patient does chronically esomeprazole will be continued (3) BPV (benign positional vertigo): non symptomatic at this time Total Time Total Time Spent Total Time Spent (In Minutes): pt is obs adm and dc same day Discharge Plan Discharge Items Patient Disposition: Home - Self-Care Reason For Visit: BILATERAL PE, PULMONARY INFARCTION Discharge Diagnosis: Pulmonary embolismblood clots in the arteries of your lungs Condition on Discharge: Good Activity: Per Instructions section Activity Comment: No intentional exercise and to see her primary care physician Non-emergency contact: Primary Care Provider Call non-emergency contact if: your symptoms worsen Follow-up/Referrals: Kelly Castelan CRNP [Primary Care Provider] - Diet: Regular Addtl Attending Provider Instructions: If blood clot in your lung likely from your surgery. This should resolve over the next weeks to months. He will be on a blood thinner initially 2 pills twice a day after 1 week we will return to 1 pill twice a day. If you have any uncontrolled bleeding, blood in your stool urine or coughing up blood please return to the emergency department for evaluation. You may notice some mild shortness of breath when you exert yourself or on your home Please try to avoid aspirin products or ibuprofen like products while on this medication you may use Tylenol without issue for pain Pending Studies at Discharge: No Stand-Alone Forms: [facility], Smoking Cessation Medications and DC Order Prescriptions: New cyclobenzaprine 10 mg tablet 10 mg PO TID PRN (Reason: muscle spasm) Qty: 20 0RF Eliquis 5 mg (74 tabs) tablets,dose pack 5 mg PO BID Qty: 74 0RF Rx Instructions: 2 pills twice a day for one week then one pill twice a day Eliquis 5 mg tablet 5 mg PO BID Qty: 60 2RF Rx Instructions: this is for after the started dose to be Rx #2 oxycodone 5 mg tablet 5 - 10 mg PO Q8H PRN (Reason: pain) Qty: 20 0RF Continued esomeprazole magnesium 20 mg capsule,delayed release(DR/EC) 20 mg PO QAM Discharge Orders: Discharge Order (Routine); Ordered 06/23/22 Ordered By: Amos Pappas/Other Patient Handouts: Pulmonary Embolism, Relieving Back Pain, AFib Preventing Stroke Admission Data Admit Date/Time: 06/23/22 09:09 Attending Provider: Amos Cuellar Admit Provider: Amos Cuellar Primary Care Provider: Kelly Castelan Other Providers: Martín Nevarez ; Amos Cuellar Other Interventions: Discharge Summary Assessment (RN) Last Done: 06/23/22 16:41 Coding Level of Care Code OBSERV/HOSP SAME DATE LVL 2 Diagnoses Pulmonary embolism I26.99 GERD (gastroesophageal reflux disease) K21.9 BPV (benign positional vertigo) H81.10
== END 2022-06-23 16:35 | disposition home or self-care (01) ==
LOC: ED 20:46 → EDINP 20:46